=== PATIENT | male | born 1965 | race Caucasian/White ===

== ENCOUNTER 2017-06-09 00:12 | Inpatient (IN) | payer OTHER ==
[~2017-06-09] VITALS: Ht 177.8 cm; Wt 120.9 kg
[2017-06-09] VITALS (9 sets, daily range): BP systolic 104–165; BP diastolic 67–85; PULSE 84–110; RESP 16–20; TEMP 96.5–98.8; O2SAT 93–100
[2017-06-09] MEDS ORDERED: LISI10TA3 PO (00:37)
[2017-06-09] MEDS ORDERED: PAXI10TA8 PO (00:37)
[2017-06-09] MEDS ORDERED: TAMS5CAP PO (00:37)
[2017-06-09] MEDS ORDERED: ATOR20TA15 PO (00:37)
[2017-06-09] MEDS ORDERED: GENTAMICIN SULFATE 80 MG/2 ML VIAL IM ONE (00:45)
[2017-06-09] MEDS ORDERED: TETANUS/DIPHTHERIA TOXOID ADULT 0.5 ML VIAL IM ONE (00:45)
[2017-06-09] MEDS ORDERED: ceFAZolin 2 GM PREMIX 50 ML IV ONE (00:45)
[2017-06-09 00:56] LABS: AUTOMATED NEUTROPHIL # 5.5 TH/MM3 (1.8-7.7); BASOPHIL # 0.1 TH/MM3 (0-0.2); EOSINOPHIL # 0.4 TH/MM3 (0-0.4); EOSINOPHIL % 3.8 % (0.0-4.0); HEMATOCRIT 41.4 % (39.0-51.0); HEMO FLAGS DIFF FINAL; LYMPH % 29.9 % (9.0-44.0); LYMPHOCYTE # 2.9 TH/MM3 (1.0-4.8); MEAN CELL VOLUME 97.9 FL (80.0-100.0); MEAN CORPUSCULAR HEMOGLOBIN 33.9 PG (27.0-34.0); MEAN CORPUSCULAR HGB CONC 34.6 % (32.0-36.0); MONO % 8.2 % (0.0-8.0); NEUT % 57.1 % (16.0-70.0); PLATELET COUNT 167 TH/MM3 (150-450); RED BLOOD COUNT 4.23 MIL/MM3 (4.50-5.90); RED CELL DISTRIBUTION WIDTH 13.2 % (11.6-17.2); WHITE BLOOD COUNT 9.6 TH/MM3 (4.0-11.0)
[2017-06-09 01:03] LABS: APTT (PATIENT) 27.8 SEC (24.3-30.1); INTERNATIONAL NORMALIZED RATIO 1.1 RATIO; PROTHROMBIN TIME - PATIENT 12.4 SEC (9.8-11.6)
--- NOTE | 2017-06-09 01:05 | RADRPT ---
EXAM DATE/TIME: 06/09/2017 00:45 [facility] COMPARISON: No previous studies available for comparison. INDICATIONS : Pain post fall MEDICAL HISTORY : None. SURGICAL HISTORY : None. ENCOUNTER: Initial ACUITY: 1 day PAIN SCORE: 8/10 LOCATION: Right ankle FINDINGS: Limited AP and lateral views of the right ankle were obtained and demonstrate a mildly comminuted fra cture deformity through the distal fibula beginning approximately 7.5 cm above the level of the ankle mortise. There is mild distraction with no abnormal angulation. There is also a transverse fracture through the medial malleolus with widening of the medial ankle mortise. There is overlying soft tissu e swelling. The talus and calcaneus are intact. There is overlying artifact. CONCLUSION: 1. Transverse fracture through the medial malleolus with widening of the medial ankle mortise. 2. Mildly comminuted fracture deformity of the distal fibula. Jhony Wang MD on June 09, 2017 at 1:02 Board Certified Radiologist. This report was verified electronically.
[2017-06-09] MEDS: GENTAMICIN 80 MG PREMIX 100 ML IV ONE ×2 (01:09→02:30)
[2017-06-09 01:11] LABS: ANION GAP 13 MEQ/L (5-15); AST (GOT) 55 U/L (15-37); BICARBONATE 25.6 MEQ/L (21.0-32.0); BLOOD UREA NITROGEN 12 MG/DL (7-18); CHLORIDE 93 MEQ/L (98-107); GLOMERULAR FILTRATION RATE 76 ML/MIN (>89); POTASSIUM 3.5 MEQ/L (3.5-5.1); SODIUM (NA) 132 MEQ/L (136-145)
[2017-06-09 01:12] LABS: ALT (GPT) 68 U/L (12-78)
[2017-06-09 01:16] LABS: ALKALINE PHOSPHATASE 102 U/L (45-117); TOTAL BILIRUBIN ADULT 0.5 MG/DL (0.2-1.0)
[2017-06-09 01:19] LABS: ALCOHOL 285 MG/DL (0-5)
--- NOTE | 2017-06-09 01:40 | PD ---
HPI Chief Complaint: Injury Time Seen by Provider: 00:32 Travel History International Travel<30 days: No Contact w/Intl Traveler<30days: No Traveled to known affect area: No History of Present Illness HPI Patient is a 51-year-old male brought in by EMS with an open ankle fracture. He says he stepped off the curb and broke his ankle. He admits to drinking beer and [place] [employer]. He was given morphine by EMS prior to arrival. He provides no other information. [facility] Past Medical History Depression: Yes High Cholesterol: Yes Diminished Hearing: No Genitourinary: Yes (prostate issues) Hypertension: Yes Social History Alcohol Use: Yes (daily ) Tobacco Use: No Substance Use: Yes (marijuana) Allergies-Medications (Allergen,Severity, Reaction): Coded Allergies: No Known Allergies (Unverified , 06/09/17) Reported Meds & Prescriptions Reported Meds & Active Scripts Active Reported Atorvastatin (Atorvastatin Calcium) 20 Mg Tab 20 Mg PO HS Paxil (Paroxetine HCl) 10 Mg Tab 10 Mg PO DAILY Flomax (Tamsulosin HCl) 0.4 Mg Cap 0.4 Mg PO HS Lisinopril 10 Mg Tab 10 Mg PO DAILY Review of Systems ROS Limitations: Intoxication Physical Exam Narrative GENERAL: Awake and alert, alcohol on breath. SKIN: 4 inch laceration to the medial side of the right ankle. Bone is protruding through the skin. HEAD: Atraumatic. Normocephalic. No signs of trauma. EYES: Pupils equal and round. No scleral icterus. Extraocular movements intact. ENT: Mucous membranes pink and moist. NECK: Trachea midline. No JVD. No cervical spine tenderness. CARDIOVASCULAR: Regular rate and rhythm. No murmur appreciated. RESPIRATORY: No accessory muscle use. Clear to auscultation. Breath sounds equal bilaterally. GASTROINTESTINAL: Abdomen soft, non-tender, nondistended. MUSCULOSKELETAL: Right ankle dislocation, tibia is protruding through the skin. Pedal pulses intact. Sensation intact. NEUROLOGICAL: Awake and alert. No obvious cranial nerve deficits. Motor grossly within normal limits. Normal speech. PSYCHIATRIC: Intoxicated Data Data Last Documented VS Vital Signs Date Time Temp Pulse Resp B/P (MAP) Pulse Ox O2 Delivery O2 Flow Rate FiO2 06/09/17 00:41 84 16 104/67 (79) 99 Room Air 06/09/17 00:28 98.5 Orders Orders Iv Access Insert/Monitor (06/09/17 00:32) Complete Blood Count With Diff (06/09/17 00:32) Comprehensive Metabolic Panel (06/09/17 00:32) Act Partial Throm Time (Ptt) (06/09/17 00:32) Prothrombin Time / Inr (Pt) (06/09/17 00:32) Type And Screen (06/09/17 00:32) Alcohol (Ethanol) (06/09/17 00:32) Ankle, Limited (Ap&Lat) (06/09/17 ) Cta Runoff W Iv Contrast W 3d (06/09/17 ) Cefazolin 2 Gm Premix (Ancef 2 Gm Premix (06/09/17 00:45) Gentamicin Inj (Gentamicin Inj) (06/09/17 00:45) Tetanus/Diphtheria Tox Adult (Tetanus/Di (06/09/17 00:45) Gentamicin 80 Mg Premix (Gentamicin 80 M (06/09/17 00:45) Labs Laboratory Tests Test 06/09/17 00:30 White Blood Count 9.6 TH/MM3 Red Blood Count 4.23 MIL/MM3 Hemoglobin 14.3 GM/DL Hematocrit 41.4 % Mean Corpuscular Volume 97.9 FL Mean Corpuscular Hemoglobin 33.9 PG Mean Corpuscular Hemoglobin Concent 34.6 % Red Cell Distribution Width 13.2 % Platelet Count 167 TH/MM3 Mean Platelet Volume 8.1 FL Neutrophils (%) (Auto) 57.1 % Lymphocytes (%) (Auto) 29.9 % Monocytes (%) (Auto) 8.2 % Eosinophils (%) (Auto) 3.8 % Basophils (%) (Auto) 1.0 % Neutrophils # (Auto) 5.5 TH/MM3 Lymphocytes # (Auto) 2.9 TH/MM3 Monocytes # (Auto) 0.8 TH/MM3 Eosinophils # (Auto) 0.4 TH/MM3 Basophils # (Auto) 0.1 TH/MM3 CBC Comment DIFF FINAL Differential Comment Prothrombin Time 12.4 SEC Prothromb Time International Ratio 1.1 RATIO Activated Partial Thromboplast Time 27.8 SEC Blood Urea Nitrogen 12 MG/DL Creatinine 1.02 MG/DL Random Glucose 138 MG/DL Total Protein 7.0 GM/DL Albumin 3.5 GM/DL Calcium Level 8.2 MG/DL Alkaline Phosphatase 102 U/L Aspartate Amino Transf (AST/SGOT) 55 U/L Alanine Aminotransferase (ALT/SGPT) 68 U/L Total Bilirubin 0.5 MG/DL Sodium Level 132 MEQ/L Potassium Level 3.5 MEQ/L Chloride Level 93 MEQ/L Carbon Dioxide Level 25.6 MEQ/L Anion Gap 13 MEQ/L Estimat Glomerular Filtration Rate 76 ML/MIN Ethyl Alcohol Level 285 MG/DL MDM Medical Decision Making Medical Screen Exam Complete: Yes Emergency Medical Condition: Yes Differential Diagnosis Ankle fracture versus dislocation versus open fracture Narrative Course Patient is a 51-year-old male comes in after he stepped off the curb and dislocated his ankle. He comes in with the tibia protruding to the skin. Pulses intact. The ankle was immediately reduced and splinted. He was given Ancef and gentamicin. Given tetanus. Labs show an alcohol level of 285. Spoke with Dr. Arce of orthopedics, who will take the patient to the OR in the morning. Patient will be admitted to medicine. Diagnosis Primary Impression: Ankle fracture, right Qualified Codes: S82.891B - Other fracture of right lower leg, initial encounter for open fracture type I or II Additional Impression: Ankle dislocation Qualified Codes: S93.04XA - Dislocation of right ankle joint, initial encounter Admitting Information Admitting Physician Requests: Admit Jie De Leon MD Jun 09, 2017 01:40
[2017-06-09] MEDS ORDERED: SODIUM CHLOR 0.9% 1000 ML INJ 1,000 ML IV SCH (01:41)
[2017-06-09] MEDS ORDERED: ONDANSETRON HCL 4 MG/2 ML VIAL IVP PRN (01:45)
[2017-06-09] MEDS ORDERED: MORPHINE SULFATE 4 MG/ML INJ IV PUSH ONE (01:45)
[2017-06-09] MEDS ORDERED: SENNOSIDES 8.6 MG TAB PO PRN (01:45)
[2017-06-09] MEDS ORDERED: MAGNESIUM HYDROXIDE SUSP 30 ML CUP PO PRN (01:45)
[2017-06-09] MEDS ORDERED: SODIUM CHLORIDE 0.9% FLUSH 10 ML FLUSH IV FLUSH PRN ×2 (01:45→11:00)
[2017-06-09] MEDS ORDERED: LORazepam 2 MG/ML VIAL IV PUSH PRN ×4 (01:45)
[2017-06-09] MEDS ORDERED: LORazepam 1 MG TAB PO PRN (01:45)
[2017-06-09] MEDS ORDERED: LACTULOSE SYRUP 20 GM/30 ML CUP PO PRN (01:45)
[2017-06-09] MEDS ORDERED: FLUMAZENIL 0.5 MG/5 ML VIAL IV PUSH PRN (01:45)
[2017-06-09] MEDS ORDERED: BISACODYL 10 MG SUPP RECTAL PRN (01:45)
[2017-06-09] MEDS ORDERED: HALOPERIDOL LACTATE 5 MG/ML AMP IM PRN (01:45)
[2017-06-09] MEDS ORDERED: ACETAMINOPHEN 325 MG TAB PO PRN (01:45)
[2017-06-09] MEDS ORDERED: LORazepam 2 MG TAB PO PRN (01:45)
[2017-06-09] MEDS ORDERED: IOHEXOL 350 MG/ML 10 ML VIAL (for RAD DIAG) IVCONTRAST ONE (02:11)
[2017-06-09] MEDS ORDERED: THIAMINE INJ 100 MG in SODIUM CHLORIDE 0.9% INJ 100 ML IV ONE (02:30)
--- NOTE | 2017-06-09 02:38 | RADRPT ---
EXAM DATE/TIME: 06/09/2017 02:01 [facility] COMPARISON: No previous studies available for comparison. INDICATIONS : Left ankle fracture; evaluate for vascular injury. ETOH. IV CONTRAST: 97 cc Omnipaque 350 (iohexol) IV RADIATION DOSE: 10.52 CTDIvol (mGy) MEDICAL HISTORY : Hypertension. SURGICAL HISTORY : None. ENCOUNTER: Initial ACUITY: 1 day PAIN SCALE: 6/10 LOCATION: Left lower extremity TECHNIQUE: Volumetric scanning was performed using a multi-row detector CT scanner. The data was post processed with a variety of visualization algorithms including full volume maximum intensity projection, multi -planar sliding thin slab reformation, curved planar reformation, and surface rendering techniques. Using automated exposure control and adjustment of the mA and/or kV according to patient size, radiat ion dose was kept as low as reasonably achievable to obtain optimal diagnostic quality images. DICO M format image data is available electronically for review and comparison. FINDINGS: ABDOMINAL AORTA: The lumen is smooth without significant narrowing or aneurysmal dilation. The proximal celiac and garcia perior mesenteric arteries are patent and normal in diameter. There are solitary renal arteries bila terally without gross abnormality. BIFURCATION: Normal. RIGHT PELVIS: The right common iliac, internal iliac, and external iliac vessels are patent without luminal irregul arity. LEFT PELVIS: The left common iliac, internal iliac, and external iliac vessels are patent and without luminal irre gularity. RIGHT THIGH: The superficial femoral and profunda vessels are patent without luminal irregularity. LEFT THIGH: The superficial femoral and profunda vessels are patent without luminal irregularity. RIGHT KNEE: The distal femoral and popliteal arteries are patent without luminal irregularity. LEFT KNEE: The distal femoral and popliteal arteries are patent without luminal irregularity. RIGHT LEG: The trifurcation is intact. LEFT LEG: The trifurcation is intact. The oblique fracture through the distal fibula and lateral malleolar frac tures are visualized. There is no major vascular injury or extravasation. CONCLUSION: Normal three-vessel runoff below the knees with no major vascular injury or extravasation. Jhony Wang MD on June 09, 2017 at 2:33 Board Certified Radiologist. This report was verified electronically.
--- NOTE | 2017-06-09 02:54 | HHI.HP ---
[facility] Unknown Admission Diagnosis open fracture/dislocation Diagnoses: (1) Open right ankle fracture Diagnosis: Principal (2) Alcohol intoxication Diagnosis: Principal (3) Dehydration Diagnosis: Principal Travel History International Travel<30 Days: No Contact w/Intl Traveler <30 Da: No Traveled to Known Affected Are: No History of Present Illness This is a 51-year-old male with a PMH of HTN, Hyperlipidemia and Depression who was brought to the ER by EMS w/ right open ankle fx. Pt currently intoxicated. States he was stepping off a curb and broke his ankle. No other injuries reported. On arrival, BP 119/78, HR 95, O2 sat 97% on RA, Afebrile. CBC unremarkable. Most recently unremarkable except for GFR 76. INR 1.1. Alcohol 285. Ankle X-ray with transverse fracture at the medial malleolus with widening of the medial ankle mortise, mildly comminuted fracture of distal fibula. CTA w/ Run-off, normal three vessel runoff below the knees. S/p reduction in ER. Dr. Arce consulted, plan is for surgical intervention in am. Review of Systems Except as stated in HPI: all other systems reviewed are Neg ROS: 14 point review of systems otherwise negative. Past Family Social History Past Medical History PMH: HTN, Hyperlipidemia and Depression Past Surgical History PAST SURGICAL HISTORY: None Allergies: Coded Allergies: No Known Allergies (Unverified , 06/09/17) Family History PAST FAMILY HISTORY: Reviewed. No h/o DM or CAD Social History PAST SOCIAL HISTORY: Positive for alcohol and Marijuana. Negative for tobacco. Physical Exam Vital Signs Vital Signs Date Time Temp Pulse Resp B/P (MAP) Pulse Ox O2 Delivery O2 Flow Rate FiO2 06/09/17 00:41 84 16 104/67 (79) 99 Room Air 06/09/17 00:28 98.5 95 16 119/78 (92) 97 Physical Exam PE: GENERAL: Middle-aged male in no acute distress, +intoxicated. HEENT: PERRLA, EOMI. No scleral icterus or conjunctival pallor. No lid lag or facial droop. CARDIOVASCULAR: Regular rate and rhythm. No obvious murmurs to auscultation. No chest tenderness to palpation. RESPIRATORY: No obvious rhonchi or wheezing. Clear to auscultation. Breath sounds equal bilaterally. GASTROINTESTINAL: Abdomen soft, non-tender, nondistended. BS normal. MUSCULOSKELETAL: Extremities without clubbing, cyanosis, or edema. No obvious deformities. RLE s/p reduction w/ splint. NEUROLOGICAL: Awake, alert and oriented x4. No focal neurologic deficits. Moving both upper and lower extremities spontaneously. Laboratory Laboratory Tests Test 06/09/17 00:30 White Blood Count 9.6 Red Blood Count 4.23 Hemoglobin 14.3 Hematocrit 41.4 Mean Corpuscular Volume 97.9 Mean Corpuscular Hemoglobin 33.9 Mean Corpuscular Hemoglobin Concent 34.6 Red Cell Distribution Width 13.2 Platelet Count 167 Mean Platelet Volume 8.1 Neutrophils (%) (Auto) 57.1 Lymphocytes (%) (Auto) 29.9 Monocytes (%) (Auto) 8.2 Eosinophils (%) (Auto) 3.8 Basophils (%) (Auto) 1.0 Neutrophils # (Auto) 5.5 Lymphocytes # (Auto) 2.9 Monocytes # (Auto) 0.8 Eosinophils # (Auto) 0.4 Basophils # (Auto) 0.1 CBC Comment DIFF FINAL Differential Comment Prothrombin Time 12.4 Prothromb Time International Ratio 1.1 Activated Partial Thromboplast Time 27.8 Blood Urea Nitrogen 12 Creatinine 1.02 Random Glucose 138 Total Protein 7.0 Albumin 3.5 Calcium Level 8.2 Alkaline Phosphatase 102 Aspartate Amino Transf (AST/SGOT) 55 Alanine Aminotransferase (ALT/SGPT) 68 Total Bilirubin 0.5 Sodium Level 132 Potassium Level 3.5 Chloride Level 93 Carbon Dioxide Level 25.6 Anion Gap 13 Estimat Glomerular Filtration Rate 76 Ethyl Alcohol Level 285 Result Diagram: 06/09/172906/09/1729 Caprini VTE Risk Assessment Caprini VTE Risk Assessment: Mod/High Risk (score >= 2) Caprini Risk Assessment Model Point Value = 1 Point Value = 2 Point Value = 3 Point Value = 5 Age 41-60 Minor surgery BMI > 25 kg/m2 Swollen legs Varicose veins or History of unexplained or recurrent spontaneous Oral contraceptives or hormone replacement Sepsis (< 1 month) Serious lung disease, including pneumonia (< 1 month) Abnormal pulmonary function Acute myocardial infarction Congestive heart failure (< 1 month) History of inflammatory bowel disease Medical patient at bed rest Age 61-74 Arthroscopic surgery Major open surgery (> 45 min) Laparoscopic surgery (> 45 min) Malignancy Confined to bed (> 72 hours) Immobilizing plaster cast Central venous access Age >= 75 History of VTE Family history of VTE Factor V Leiden Prothrombin [id number] Lupus anticoagulant Anticardiolipin antibodies Elevated serum homocysteine Heparin-induced thrombocytopenia Other congenital or acquired thrombophilia Stroke (< 1 month) Elective arthroplasty Hip, pelvis, or leg fracture Acute spinal cord injury (< 1 month) Prophylaxis Regimen Total Risk Factor Score Risk Level Prophylaxis Regimen 0-1 Low Early ambulation 2 Moderate Order ONE of the following: *Sequential Compression Device (SCD) *Heparin 5000 units SQ BID 3-4 Higher Order ONE of the following medications: *Heparin 5000 units SQ TID *Enoxaparin/Lovenox 40 mg SQ daily (WT < 150 kg, CrCl > 30 mL/min) *Enoxaparin/Lovenox 30 mg SQ daily (WT < 150 kg, CrCl > 10-29 mL/min) *Enoxaparin/Lovenox 30 mg SQ BID (WT < 150 kg, CrCl > 30 mL/min) AND/OR *Sequential Compression Device (SCD) 5 or more Highest Order ONE of the following medications: *Heparin 5000 units SQ TID (Preferred with Epidurals) *Enoxaparin/Lovenox 40 mg SQ daily (WT < 150 kg, CrCl > 30 mL/min) *Enoxaparin/Lovenox 30 mg SQ daily (WT < 150 kg, CrCl > 10-29 mL/min) *Enoxaparin/Lovenox 30 mg SQ BID (WT < 150 kg, CrCl > 30 mL/min) AND *Sequential Compression Device (SCD) Assessment and Plan Problem List: (1) Open right ankle fracture ICD Code: S82.891B - Other fracture of right lower leg, initial encounter for open fracture type I or II (2) Alcohol intoxication ICD Code: F10.929 - Alcohol use, unspecified with intoxication, unspecified (3) Dehydration ICD Code: E86.0 - Dehydration Assessment and Plan A/P: 1. Open Ankle Fx: Right. S/p fall while intoxicated, no other injuries reported. Ankle X-ray w/ transverse fracture at the medial malleolus and widening of the medial ankle mortise with mildly comminuted fracture of distal fibula, images reviewed by me. CTA w/ run-off normal. S/p Reduction w/ splint in ER. Dr. Arce consulted, plan is for surgical intervention in am. NPO, IVF , analgesics/antiemetics as needed. 2. Alcohol Intoxication: Alcohol 285, admits to drinking beer/[employer]. Unclear if pt has h/o Alcohol Abuse or isolated intoxicated. Will start CIWA for possible withdrawal. MVT/Thiamine/Folate replacement, Seizure Precautions. 3. Dehydration: GFR 76, IVF for hydration, repeat labs in am. 4. DVT Prophylaxis: Anticoagulation post op per Ortho. 5. Social work for d/c planning as needed. 6. Case discussed w/ ER physician at length. Physician Certification 2 Midnight Certification Type: Admission for Inpatient Services Order for Inpatient Services The services are ordered in accordance with Medicare regulations or non- Medicare payer requirements, as applicable. In the case of services not specified as inpatient-only, they are appropriately provided as inpatient services in accordance with the 2-midnight benchmark. Estimated LOS (days): 2 days is the estimated time the patient will need to remain in the hospital, assuming treatment plan goals are met and no additional complications. Post-Hospital Plan: Not yet determined Shayy Lima MD Jun 09, 2017 02:54
[2017-06-09] MEDS ORDERED: LACTATED RINGER'S 1000 ML IV PRN (03:15)
[2017-06-09] MEDS ORDERED: METOPROLOL TARTRATE 25 MG TAB PO PRN (03:15)
[2017-06-09] MEDS ORDERED: SODIUM CHLORID 0.9% 500 ML IV PRN (03:15)
[2017-06-09] MEDS ORDERED: POVIDONE IODINE 5% (ANTISEPSIS KIT) 4 APPLICATIONS EACH NARE PRN (03:15)
[2017-06-09] MEDS ORDERED: CHLORHEXIDINE GLUCONATE 2 % 1 PACK (2 CLOTHS) TOPICAL PRN (03:15)
[2017-06-09] MEDS ORDERED: INSULIN HUMAN REGULAR 1,000 UNITS/10 ML VIAL SQ PRN (03:15)
[2017-06-09] MEDS: MORPHINE SULFATE 4 MG/ML INJ IV PUSH PRN ×5 (03:20→23:28)
--- NOTE | 2017-06-09 07:07 | PD.CONS ---
HPI Service [facility] Consult Requested By Primary Care Physician Unknown Admission Diagnosis open fracture/dislocation Diagnoses: (1) Open right ankle fracture Diagnosis: Principal (2) Alcohol intoxication Diagnosis: Secondary (3) Dehydration Diagnosis: Secondary Chief Complaint: Right ankle pain History of Present Illness Patient is a 51-year-old gentleman who presented to the ED earlier this morning highly intoxicated with right ankle injury after he states he stepped off a curb incorrectly. Patient was found to have an open right ankle fracture dislocation which was cleaned, closed reduced and splinted in the ED. Patient was started on antibiotics. This morning patient does appear much more sober. He denies any other injuries. Review of Systems Constitutional: DENIES: Fever Endocrine: DENIES: Polyuria Eyes: DENIES: Blurred vision Ears, nose, mouth, throat: DENIES: Throat pain Respiratory: DENIES: Cough Cardiovascular: DENIES: Chest pain Gastrointestinal: DENIES: Abdominal pain Genitourinary: DENIES: Urgency Musculoskeletal: COMPLAINS OF: Joint pain, Joint Swelling Integumentary: DENIES: Rash Hematologic/lymphatic: DENIES: Bruising Immunologic/allergic: DENIES: Eczema Neurologic: DENIES: Abnormal gait Psychiatric: DENIES: Anxiety Past Family Social History Past Medical History PMH: HTN, Hyperlipidemia and Depression Past Surgical History PAST SURGICAL HISTORY: None Reported Medications Medication for high blood pressure otherwise negative Allergies: Coded Allergies: No Known Allergies (Unverified , 06/09/17) Active Ordered Medications Current Medications Medications (Trade) Dose Ordered Sig/Coty Route Start Time Stop Time Status Last Admin (Folate) 1 mg DAILY PO 06/09/17 09:00 06/14/17 08:59 (Vitamin B1) 100 mg DAILY PO 06/10/17 09:00 (Theragran M Tab) 1 tab DAILY PO 06/09/17 09:00 06/14/17 08:59 (Romazicon Inj) 0.2 mg Q1M PRN IV PUSH 06/09/17 01:45 (Ativan) 1 mg Q4H PRN PO 06/09/17 01:45 (Ativan Inj) 1 mg Q4H PRN IV PUSH 06/09/17 01:45 (Ativan) 2 mg Q2H PRN PO 06/09/17 01:45 (Ativan Inj) 2 mg Q2H PRN IV PUSH 06/09/17 01:45 (Ativan Inj) 2 mg Q1H PRN IV PUSH 06/09/17 01:45 (Ativan Inj) 2 mg Q15M PRN IV PUSH 06/09/17 01:45 (Haldol Inj) 2 mg Q15M PRN IM 06/09/17 01:45 Sodium Chloride 1,000 ml @ 100 mls/hr Q10H IV 06/09/17 01:41 06/09/17 02:29 (NS Flush) 2 ml UNSCH PRN IV FLUSH 06/09/17 01:45 (NS Flush) 2 ml BID IV FLUSH 06/09/17 09:00 (Zofran Inj) 4 mg Q6H PRN IVP 06/09/17 01:45 (Tylenol) 650 mg Q6H PRN PO 06/09/17 01:45 (Morphine Inj) 2 mg Q3H PRN IV PUSH 06/09/17 01:45 06/09/17 03:20 (Roxicodone) 5 mg Q4H PRN PO 06/09/17 01:45 (Ann-Colace) 1 tab BID PO 06/09/17 09:00 (Milk Of Magnesia Liq) 30 ml Q12H PRN PO 06/09/17 01:45 (Senokot) 17.2 mg Q12H PRN PO 06/09/17 01:45 (Dulcolax Supp) 10 mg DAILY PRN RECTAL 06/09/17 01:45 (Lactulose Liq) 30 ml DAILY PRN PO 06/09/17 01:45 Lactated Ringer's 1,000 ml @ 30 mls/hr Q24H PRN IV 06/09/17 03:15 06/12/17 03:14 06/09/17 06:37 Sodium Chloride 500 ml @ 30 mls/hr [id number] PRN IV 06/09/17 03:15 06/12/17 03:14 (Lopressor) 25 mg [employer] PRN PO 06/09/17 03:15 06/12/17 03:14 (Betadine 5% Antisepsis Kit) 1 applic [employer]IN[employer] PRN EACH NARE 06/09/17 03:15 06/12/17 03:14 (Chlorhexidine 2% Cloth) 3 pack [employer]IN[employer] PRN TOPICAL 06/09/17 03:15 06/12/17 03:14 (NovoLIN R INJ) See Protocol Table ... [employer] S[employer]OL COORDINATOR PRN SQ 06/09/17 03:15 06/12/17 03:14 Reported Meds & Active Scripts Active Reported Atorvastatin (Atorvastatin Calcium) 20 Mg Tab 20 Mg PO HS Paxil (Paroxetine HCl) 10 Mg Tab 10 Mg PO DAILY Flomax (Tamsulosin HCl) 0.4 Mg Cap 0.4 Mg PO HS Lisinopril 10 Mg Tab 10 Mg PO DAILY Family History PAST FAMILY HISTORY: Reviewed. No h/o DM or CAD Social History PAST SOCIAL HISTORY: Positive for alcohol and Marijuana. Negative for tobacco. Physical Exam Vital Signs Vital Signs Date Time Temp Pulse Resp B/P (MAP) Pulse Ox O2 Delivery O2 Flow Rate FiO2 06/09/17 03:05 96.5 95 20 124/67 (86) 94 06/09/17 00:41 84 16 104/67 (79) 99 Room Air 06/09/17 00:28 98.5 95 16 119/78 (92) 97 Physical Exam Awake, alert, no acute distress Normocephalic No JVD Pupils equal Moist mucous membranes Nonlabored respirations Soft nontender abdomen Regular rate Right lower extremity: Splint in place without any significant drainage. Patient does move toes and has positive EHL and FHL. Sensation intact over distal toes. Brisk cap refill. No significant discomfort with knee or hip range of motion. Bilateral upper and left lower extremity: No significant deformities or tenderness palpation. Full active range of motion and strength throughout. Sensation intact. Radial and dorsalis pedis pulses are palpable. Skin: No rash Normal affect Laboratory Laboratory Tests Test 06/09/17 00:30 White Blood Count 9.6 Red Blood Count 4.23 Hemoglobin 14.3 Hematocrit 41.4 Mean Corpuscular Volume 97.9 Mean Corpuscular Hemoglobin 33.9 Mean Corpuscular Hemoglobin Concent 34.6 Red Cell Distribution Width 13.2 Platelet Count 167 Mean Platelet Volume 8.1 Neutrophils (%) (Auto) 57.1 Lymphocytes (%) (Auto) 29.9 Monocytes (%) (Auto) 8.2 Eosinophils (%) (Auto) 3.8 Basophils (%) (Auto) 1.0 Neutrophils # (Auto) 5.5 Lymphocytes # (Auto) 2.9 Monocytes # (Auto) 0.8 Eosinophils # (Auto) 0.4 Basophils # (Auto) 0.1 CBC Comment DIFF FINAL Differential Comment Prothrombin Time 12.4 Prothromb Time International Ratio 1.1 Activated Partial Thromboplast Time 27.8 Blood Urea Nitrogen 12 Creatinine 1.02 Random Glucose 138 Total Protein 7.0 Albumin 3.5 Calcium Level 8.2 Alkaline Phosphatase 102 Aspartate Amino Transf (AST/SGOT) 55 Alanine Aminotransferase (ALT/SGPT) 68 Total Bilirubin 0.5 Sodium Level 132 Potassium Level 3.5 Chloride Level 93 Carbon Dioxide Level 25.6 Anion Gap 13 Estimat Glomerular Filtration Rate 76 Ethyl Alcohol Level 285 Result Diagram: 06/09/172906/09/1729 Imaging Right ankle radiographs demonstrate a bimalleolar ankle fracture which appears unstable on imaging. This has been reduced from prior ED reports. Assessment & Plan Assessment and Plan Patient is a 51-year-old gentleman with open right bimalleolar ankle fracture Options of management were discussed with the patient including nonoperative versus operative management. Given the open nature of his injury, I have recommended operative management in the form of irrigation and debridement with open reduction internal fixation of his right ankle fracture. I did discuss that should his swelling or his open injury be too significant to acutely managed with open reduction internal fixation, I would perform an irrigation and debridement and possible application of external fixator. I also discussed the option of the use of an external fixator should his ankle be highly unstable evening after it has been fixed. Risks, benefits, alternatives were discussed with the patient. Risks including but not limited to risk of infection, anesthesia, neurovascular injury, malunion or nonunion, hardware malposition or failure, painful retained hardware, ankle arthritis and chronic pain, and other unforeseen complications. At this time patient has consented to the procedure. Patient is nothing by mouth for surgery this morning. Patient will be continued on antibiotics for 48 hours postop. Patient will be nonweightbearing postop in a splint. Liza Arce MD Jun 09, 2017 07:07
[2017-06-09] MEDS ORDERED: GENTAMICIN SULFATE 80 MG/2 ML VIAL ONE ×2 (08:15→08:16)
[2017-06-09] MEDS ORDERED: ceFAZolin INJ 1,000 MG VIAL ONE (08:15)
[2017-06-09] MEDS: DOCUSATE SODIUM 50 MG/SENNA 8.6 MG TAB PO SCH ×2 (09:00→20:16)
[2017-06-09] MEDS: MULTIVITAMINS/MINERALS THERAPEUTIC TAB PO SCH (09:00)
[2017-06-09] MEDS: SODIUM CHLORIDE 0.9% FLUSH 10 ML FLUSH IV FLUSH SCH ×2 (09:00→20:17)
[2017-06-09] MEDS: FOLIC ACID 1 MG TAB PO SCH (09:00)
--- NOTE | 2017-06-09 10:55 | PD.OP ---
cc: Liza Arce MD Operative Report Preoperative Diagnosis: (1) Open right ankle fracture Postoperative Diagnosis: Same Procedure: 1. Irrigation and debridement open right ankle fracture dislocation, skin, subcutaneous tissue, muscle and fascia and bone 2. Open reduction internal fixation right bimalleolar ankle fracture and dislocation 3. Open reduction internal fixation right syndesmotic injury Surgeon: Liza Arce Loft Worker(s): food service assistant, daily Operation and Findings: Indications for procedure: Patient is a 51-year-old gentleman who presented highly intoxicated with reported slip off of a curb with a large open wound over his medial right ankle with ankle pain and inability to ambulate. Patient was found to have an open unstable bimalleolar ankle fracture. Risks, benefits , alternatives were discussed with the patient risks of surgery including but not limited to infection, malunion or nonunion, hardware malposition or failure , possible need for further surgery, damage to neurovascular structures, chronic ankle pain or arthritis, and possible other unforeseen consultations were all discussed with the patient. He did consent to proceed with the above- mentioned procedure. Description of procedure: Patient was brought back to the operating room and placed supine on operating room table with all bony prominences well-padded. Gen. anesthesia then ensued. Preoperative antibiotics were given in the form of Ancef and gentamicin. Patient's right leg was prepped and draped in standard sterile fashion. A timeout was performed to identify the correct patient, side, site and procedure to be performed. Attention was first turned to the medial wound which is probably 6-8 cm in length in a horizontal fashion along the medial aspect of the joint and medial malleolus. The ankle was highly unstable and continued to dislocate. This wound was debrided with sharp debridement and irrigated thoroughly with over 3 L of normal saline laden with gentamicin. The joint along with the bone, subcutaneous tissue, muscle and fascia were all clearly debrided to healthy bleeding tissue. There is no gross contamination noted. At this time, the tourniquet was then inflated to 250 mmHg. A lateral incision was made over the distal fibula with dissection down through the subcutaneous tissue with careful attention to preserve the superficial peroneal nerve. The distal third fibula fracture was highly comminuted. There was 1 large fragment that was lagged to the distal piece to allow for fewer fragments. A large 12 hole one third tubular Synthes plate was placed over the lateral aspect of the fibula and attached distally and acceptable position on fluoroscopy and distal screws were placed. With gentle traction and with the help of clamps, the fibula was brought out to length under AP and lateral fluoroscopy. This was then clamped into position and proximal screws were then placed. AP and lateral projections demonstrated an acceptable fibular length and fracture alignment along with hardware positioning. At this point the medial malleolus was then reduced under direct visualization and confirmed on fluoroscopy. K wires were then placed from a distal to proximal direction to allow for 2 medial malleolar screws to be placed. These were verified to be out of the joint with fracture reduced under fluoroscopy. The K wires were then measured, the near cortex drilled and 2 4-0 Synthes cannulated screws were then placed and tightened down. The medial malleolus fracture again was found to be in good position and hardware out of the joint and stable. On AP fluoroscopy the ankle was then stressed with external rotation and the syndesmosis significantly widened and the ankle started to dislocate. At this point it was decided a syndesmotic screw would be placed through the lateral fibular plate with the use of fluoroscopy. The syndesmosis was held reduced with the ankle in maximum dorsiflexion. The tibiotalar joint was well reduced on both AP and lateral projections and the syndesmotic screw was drilled, measured and then placed. At this point, the ankle was then externally stressed again, and still appeared to slightly shift in the tibiotalar joint. With this, it was decided a second syndesmotic screw would be placed in the same manner as the first in maximum dorsiflexion. Once the second syndesmotic screw was placed and tightened down, the ankle was again stressed with external rotation and found to be stable. Final XR were then obtained and verified to be in good alignment, stable reduction and acceptable position of hardware. The wounds were thoroughly irrigated. The tourniquet was released and hemostasis achieved. The subcutaneous tissue was then closed with interrupted Vicryl-Plus sutures. Skin was then closed with nylon sutures and sterile dressings placed. A splint was placed and patient awoken from general anesthesia without complication. Disposition: NWB RLE in splint for likely a total of 6 weeks. Elevate on pillows. Continue gentamicin and ancef for 48hrs postop. Liza Arce MD Jun 09, 2017 10:55
[2017-06-09] MEDS: LACTATED RINGER'S 1000 ML INJ 1,000 ML IV SCH (10:56)
[2017-06-09] MEDS ORDERED: DO NOT ADM ANY ANTICOAGULANT DRUGS PRN (10:58)
[2017-06-09] MEDS ORDERED: Gentamicin Consult Pharmacy 1 EA OTHER SCH (11:00)
[2017-06-09] MEDS ORDERED: Post-op Orders (for Pharmacy) MISC XX ONE (11:00)
[2017-06-09] MEDS ORDERED: ACETAMINOPHEN 1000 MG/100 ML 100 ML IV ONE (11:11)
--- NOTE | 2017-06-09 11:11 | RADRPT ---
EXAM DATE/TIME: 06/09/2017 08:47 [facility] COMPARISON: No previous studies available for comparison. INDICATIONS : Right ankle ORIF. MEDICAL HISTORY : None. SURGICAL HISTORY : None. ENCOUNTER: Initial ACUITY: 1 day PAIN SCORE: Non-responsive. LOCATION: Right ankle. FINDINGS: 4 views are recorded digitally in the operating room during placement of lateral fibular plate, media l tibial screws, and transosseous screws. CONCLUSION: Intraoperative images. Pepe Dey MD on June 09, 2017 at 11:09 Board Certified Radiologist. This report was verified electronically.
[2017-06-09] MEDS ORDERED: ONDANSETRON HCL 4 MG/2 ML VIAL IV ONE (12:00)
[2017-06-09] MEDS ORDERED: GLYCOPYRROLATE 1 MG/5 ML SYRINGE IV PUSH ONE (12:00)
[2017-06-09] MEDS ORDERED: MIDAZOLAM HCL 2 MG/2 ML VIAL IV ONE (12:00)
[2017-06-09] MEDS ORDERED: SUCCINYLCHOLINE CHLORIDE 100 MG/5 ML SYRINGE IV PUSH ONE (12:00)
[2017-06-09] MEDS ORDERED: ePHEDrine/NS 25 MG/5 ML SYR IV ONE (12:00)
[2017-06-09] MEDS ORDERED: LACTATED RINGER'S 1000 ML INJ 1,000 ML IV ONE (12:00)
[2017-06-09] MEDS ORDERED: DEXAMETHASONE SOD PHOS 4 MG/ML VIAL IV ONE (12:00)
[2017-06-09] MEDS ORDERED: LIDOCAINE HCL 1% PF 5 ML SYRINGE OTHER ONE (12:00)
[2017-06-09] MEDS ORDERED: ROCURONIUM INJ 50 MG/5 ML SYRINGE IV PUSH ONE (12:00)
[2017-06-09] MEDS ORDERED: PROPOFOL 200 MG/20 ML AMP IV ONE (12:00)
[2017-06-09] MEDS ORDERED: NEOSTIGMINE 3 MG/3 ML SYR IV ONE (12:00)
--- NOTE | 2017-06-09 16:10 | HHI.PR ---
Subjective Remarks History from admitting physician Doctor Cathy Lima This is a 51-year-old male with a PMH of HTN, Hyperlipidemia and Depression who was brought to the ER by EMS w/ right open ankle fx. Pt currently intoxicated. States he was stepping off a curb and broke his ankle. No other injuries reported. On arrival, BP 119/78, HR 95, O2 sat 97% on RA, Afebrile. CBC unremarkable. Most recently unremarkable except for GFR 76. INR 1.1. Alcohol 285. Ankle X-ray with transverse fracture at the medial malleolus with widening of the medial ankle mortise, mildly comminuted fracture of distal fibula. CTA w/ Run-off, normal three vessel runoff below the knees. S/p reduction in ER. Dr. Arce consulted, plan is for surgical intervention in am. This is a pleasant 51 y/o male was seen in his bedroom in the presence of Nurse , he is looking for something he lost and helped by Nurse not able to talk to me too much but states he is fine after procedure, he had Irrigation and debridement open right ankle fracture dislocation, skin, subcutaneous tissue, muscle and fascia and bone, Open reduction internal fixation right bimalleolar ankle fracture and dislocation Open reduction internal fixation right syndesmotic injury. Orthopedic employment specialist/program manager Doctor Liza Arce He was admitted today please read full H and P dictated by admitting physician. as we know he has Hypertension, Hyperlipidemia, Depression alcohol abuse and marijuana. has Obesity. Objective Vital Signs Date Time Temp Pulse Resp B/P (MAP) Pulse Ox O2 Delivery O2 Flow Rate FiO2 06/09/17 11:45 98.8 110 16 144/75 (98) 94 06/09/17 11:40 98.7 108 15 145/69 (94) 96 Nasal Cannula 3 06/09/17 11:30 143/70 (94) Nasal Cannula 3 06/09/17 11:15 108 14 145/70 (95) 94 Nasal Cannula 3 06/09/17 11:04 99.0 112 15 153/79 (103) 96 Nasal Cannula 3 06/09/17 06:50 97.0 98 20 117/73 (88) 100 06/09/17 03:05 96.5 95 20 124/67 (86) 94 06/09/17 03:05 96.5 95 20 124/67 (86) 94 06/09/17 00:41 84 16 104/67 (79) 99 Room Air 06/09/17 00:28 98.5 95 16 119/78 (92) 97 I/O 06/08/17 06/08/17 06/08/17 06/09/17 06/09/17 06/09/17 07:00 15:00 23:00 07:00 15:00 23:00 Intake Total 698 ml 1520 ml Output Total 1450 ml 200 ml Balance -752 ml 1320 ml Intake IV Total 698 ml 20 ml Other 1500 ml Output Urine Total 1450 ml 0 ml Estimated Blood Loss 200 ml # Voids 1 Result Diagram: 06/09/17 0030 06/09/17 0030 Imaging Last Impressions Aorta w/Runoff CTA 06/09/17 0000 Signed Impressions: Service Date/Time: Friday, June 09, 2017 02:01 - CONCLUSION: Normal three-vessel runoff below the knees with no major vascular injury or extravasation. Jhony Wang MD Ankle X-Ray 06/09/17 0000 Signed Impressions: Service Date/Time: Friday, June 09, 2017 08:47 - CONCLUSION: Intraoperative images. Pepe Dey MD Procedures Irrigation and debridement open right ankle fracture dislocation, skin, subcutaneous tissue, muscle and fascia and bone, Open reduction internal fixation right bimalleolar ankle fracture and dislocation Open reduction internal fixation right syndesmotic injury. Orthopedic employment specialist/program manager Doctor Liza Arce Other Results Laboratory Tests Test 06/09/17 00:30 White Blood Count 9.6 TH/MM3 Red Blood Count 4.23 MIL/MM3 Hemoglobin 14.3 GM/DL Hematocrit 41.4 % Mean Corpuscular Volume 97.9 FL Mean Corpuscular Hemoglobin 33.9 PG Mean Corpuscular Hemoglobin Concent 34.6 % Red Cell Distribution Width 13.2 % Platelet Count 167 TH/MM3 Mean Platelet Volume 8.1 FL Neutrophils (%) (Auto) 57.1 % Lymphocytes (%) (Auto) 29.9 % Monocytes (%) (Auto) 8.2 % Eosinophils (%) (Auto) 3.8 % Basophils (%) (Auto) 1.0 % Neutrophils # (Auto) 5.5 TH/MM3 Lymphocytes # (Auto) 2.9 TH/MM3 Monocytes # (Auto) 0.8 TH/MM3 Eosinophils # (Auto) 0.4 TH/MM3 Basophils # (Auto) 0.1 TH/MM3 CBC Comment DIFF FINAL Differential Comment Prothrombin Time 12.4 SEC Prothromb Time International Ratio 1.1 RATIO Activated Partial Thromboplast Time 27.8 SEC Blood Urea Nitrogen 12 MG/DL Creatinine 1.02 MG/DL Random Glucose 138 MG/DL Total Protein 7.0 GM/DL Albumin 3.5 GM/DL Calcium Level 8.2 MG/DL Alkaline Phosphatase 102 U/L Aspartate Amino Transf (AST/SGOT) 55 U/L Alanine Aminotransferase (ALT/SGPT) 68 U/L Total Bilirubin 0.5 MG/DL Sodium Level 132 MEQ/L Potassium Level 3.5 MEQ/L Chloride Level 93 MEQ/L Carbon Dioxide Level 25.6 MEQ/L Anion Gap 13 MEQ/L Estimat Glomerular Filtration Rate 76 ML/MIN Ethyl Alcohol Level 285 MG/DL Objective Remarks GENERAL: No acute distress, Obesity. CARDIOVASCULAR: Regular rate and rhythm. RESPIRATORY: clear to auscultation. MUSCULOSKELETAL: RLE orthotics in place. NEUROLOGICAL: Awake, alert and oriented x4. Medications and IVs Current Medications Medications (Trade) Dose Ordered Sig/Coty Route Start Time Stop Time Status Last Admin (Folate) 1 mg DAILY PO 06/09/17 09:00 06/14/17 08:59 (Vitamin B1) 100 mg DAILY PO 06/10/17 09:00 (Theragran M Tab) 1 tab DAILY PO 06/09/17 09:00 06/14/17 08:59 (Romazicon Inj) 0.2 mg Q1M PRN IV PUSH 06/09/17 01:45 (Ativan) 1 mg Q4H PRN PO 06/09/17 01:45 (Ativan Inj) 1 mg Q4H PRN IV PUSH 06/09/17 01:45 (Ativan) 2 mg Q2H PRN PO 06/09/17 01:45 (Ativan Inj) 2 mg Q2H PRN IV PUSH 06/09/17 01:45 (Ativan Inj) 2 mg Q1H PRN IV PUSH 06/09/17 01:45 (Ativan Inj) 2 mg Q15M PRN IV PUSH 06/09/17 01:45 (Haldol Inj) 2 mg Q15M PRN IM 06/09/17 01:45 (NS Flush) 2 ml UNSCH PRN IV FLUSH 06/09/17 01:45 (NS Flush) 2 ml BID IV FLUSH 06/09/17 09:00 (Zofran Inj) 4 mg Q6H PRN IVP 06/09/17 01:45 (Tylenol) 650 mg Q6H PRN PO 06/09/17 01:45 (Morphine Inj) 2 mg Q3H PRN IV PUSH 06/09/17 01:45 06/09/17 15:14 (Roxicodone) 5 mg Q4H PRN PO 06/09/17 01:45 06/09/17 13:25 (Ann-Colace) 1 tab BID PO 06/09/17 09:00 (Milk Of Magnesia Liq) 30 ml Q12H PRN PO 06/09/17 01:45 (Senokot) 17.2 mg Q12H PRN PO 06/09/17 01:45 (Dulcolax Supp) 10 mg DAILY PRN RECTAL 06/09/17 01:45 (Lactulose Liq) 30 ml DAILY PRN PO 06/09/17 01:45 (Lopressor) 25 mg [employer]EMARK A[employer]IXER PRN PO 06/09/17 03:15 06/12/17 03:14 (Betadine 5% Antisepsis Kit) 1 applic [employer]ARK A[employer]IXER PRN EACH NARE 06/09/17 03:15 06/12/17 03:14 (Chlorhexidine 2% Cloth) 3 pack [employer] PRN TOPICAL 06/09/17 03:15 06/12/17 03:14 (NovoLIN R INJ) See Protocol Table ... TRADEMARK A[employer]IXER PRN SQ 06/09/17 03:15 06/12/17 03:14 Lactated Ringer's 1,000 ml @ 80 mls/hr [id number] IV 06/09/17 10:56 (Lovenox Inj) 40 mg Q24H SQ 06/09/17 23:00 Pharmacy Profile Note 0 ml @ 0 mls/hr UNSCH OTHER 06/09/17 11:00 06/11/17 10:59 Miscellaneous Information ALL NURSING DEPARTME... UNSCH PRN .XX 06/09/17 10:58 06/10/17 10:57 Miscellaneous Information SPECIFIC LAB TO BE DRAWN:GENTAMI... ONCE ONCE .XX 06/10/17 21:45 06/10/17 21:46 Gentamicin Sulfate/Sodium Chloride 100 ml @ 200 mls/hr Q8H IV 06/09/17 22:00 Cefazolin Sodium 1000 mg/Sodium Chloride 100 ml @ 200 mls/hr Q6H IV 06/09/17 15:00 06/10/17 03:29 06/09/17 15:15 A/P Assessment and Plan 1. Open Ankle Fx: Right. S/p fall while intoxicated, Ankle X-ray w/ transverse fracture at the medial malleolus and widening of the medial ankle mortise with mildly comminuted fracture of distal fibula, images reviewed by me. CTA w/ run- off normal. S/p Reduction w/ splint in ER. Status post Irrigation and debridement open right ankle fracture dislocation, skin, subcutaneous tissue, muscle and fascia and bone, Open reduction internal fixation right bimalleolar ankle fracture and dislocation Open reduction internal fixation right syndesmotic injury. Orthopedic employment specialist/program manager Doctor Liza Arce 2. Alcohol Intoxication: Alcohol 285, admits to drinking beer/[employer]. Unclear if pt has h/o Alcohol Abuse or isolated intoxicated. Will start CIWA for possible withdrawal. MVT/Thiamine/Folate replacement, Seizure Precautions. 3. Hypertension by history 4. Obesity strongly recommended diet and exercise as outpatient 5. Alcohol abuse/marijuana abuse strongly recommended to stop behavior. DVT prophylaxis as per Attending physician. Sha Murillo MD Jun 09, 2017 16:10
[2017-06-09] MEDS ORDERED: SODIUM CHLORIDE 0.9% FLUSH 10 ML FLUSH IV FLUSH SCH (21:00)
[2017-06-09] MEDS: GENTAMICIN/SOD CHL 80 MG/100 ML IV SCH (21:53)
--- NOTE | 2017-06-09 22:58 | EKG ---
Date Performed: 06/09/2017 Time Performed: 04:53:10 PTAGE: 51 years EKG: Sinus rhythm Normal ECG NO PREVIOUS TRACING DOCTOR: Zhou Murphy Interpretating Date/Time 06/09/2017 22:57:40
[2017-06-09] MEDS: ENOXAPARIN SODIUM 40 MG/0.4 ML SYRINGE SQ SCH (23:20)
[2017-06-10] MEDS: LACTATED RINGER'S 1000 ML INJ 1,000 ML IV SCH ×3 (02:07→23:30)
[2017-06-10 03:32] VITALS: BP 129/71; PULSE 85; RESP 18; TEMP 97.6; O2SAT 93
[2017-06-10] MEDS: GENTAMICIN/SOD CHL 80 MG/100 ML IV SCH ×3 (06:06→21:49)
--- NOTE | 2017-06-10 07:00 | PD.ORT.PN ---
Subjective Subjective Remarks Patient doing well this morning. Pain relatively well controlled. Denies nausea or vomiting. Denies fevers or chills. No chest pain or shortness of breath Objective Vitals Vital Signs Date Time Temp Pulse Resp B/P (MAP) Pulse Ox O2 Delivery O2 Flow Rate FiO2 06/10/17 03:32 97.6 85 18 129/71 (90) 93 06/09/17 23:40 98.4 95 18 126/70 (88) 93 06/09/17 20:09 94 06/09/17 19:35 98.6 100 19 165/85 (111) 94 06/09/17 16:00 97.1 99 18 154/85 (108) 96 06/09/17 11:45 98.8 110 16 144/75 (98) 94 06/09/17 11:40 98.7 108 15 145/69 (94) 96 Nasal Cannula 3 06/09/17 11:30 143/70 (94) Nasal Cannula 3 06/09/17 11:15 108 14 145/70 (95) 94 Nasal Cannula 3 06/09/17 11:04 99.0 112 15 153/79 (103) 96 Nasal Cannula 3 I/O 06/09/17 06/09/17 06/09/17 06/10/17 06/10/17 06/10/17 07:00 15:00 23:00 07:00 15:00 23:00 Intake Total 698 ml 2000 ml 1680 ml 720 ml Output Total 1450 ml 200 ml 975 ml 3140 ml Balance -752 ml 1800 ml 705 ml -2420 ml Intake Oral 480 ml 480 ml 720 ml IV Total 698 ml 20 ml 1200 ml Other 1500 ml Output Urine Total 1450 ml 0 ml 975 ml 3140 ml Estimated Blood Loss 200 ml # Voids 1 2 # Bowel Movements 0 0 0 Result Diagram: 06/09/172906/09/1729 Objective Remarks Awake, alert, no acute distress Right lower extremity: Splint in place without any significant drainage. Patient does move toes positive EHL and FHL. Sensation intact over distal toes. Brisk cap refill Assessment & Plan Assessment and Plan 51-year-old, now postop day 1 status post I&D and ORIF of right open ankle fracture 1. Nonweightbearing right lower extremity in splint. Splint remained in place. 2. PT for mobilization 3. Lovenox while in house for DVT prophylaxis 4. Continue antibiotics for 48 hours postop for grade 2 open fracture 5. We'll plan for likely discharge tomorrow. Liza Arce MD Jun 10, 2017 07:00
[2017-06-10] MEDS ORDERED: OXYC-392 PO (07:01)
[2017-06-10] MEDS ORDERED: WALKER WHEELS/F1 MIS (07:02)
[2017-06-10 07:09] LABS: BASOPHIL % 0.2 % (0.0-2.0); HEMATOCRIT 37.4 % (39.0-51.0); HEMO FLAGS DIFF FINAL; LYMPH % 13.5 % (9.0-44.0); LYMPHOCYTE # 1.6 TH/MM3 (1.0-4.8); MEAN CORPUSCULAR HEMOGLOBIN 34.2 PG (27.0-34.0); MEAN CORPUSCULAR HGB CONC 34.9 % (32.0-36.0); MONO % 10.2 % (0.0-8.0); NEUT % 76.1 % (16.0-70.0); PLATELET COUNT 142 TH/MM3 (150-450); RED BLOOD COUNT 3.82 MIL/MM3 (4.50-5.90); RED CELL DISTRIBUTION WIDTH 13.2 % (11.6-17.2); WHITE BLOOD COUNT 11.8 TH/MM3 (4.0-11.0)
[2017-06-10 07:30] LABS: ANION GAP 7 MEQ/L (5-15); AST (GOT) 38 U/L (15-37); BICARBONATE 28.9 MEQ/L (21.0-32.0); BLOOD UREA NITROGEN 12 MG/DL (7-18); CHLORIDE 98 MEQ/L (98-107); GLOMERULAR FILTRATION RATE 88 ML/MIN (>89); POTASSIUM 4.2 MEQ/L (3.5-5.1); SODIUM (NA) 134 MEQ/L (136-145)
[2017-06-10 07:33] LABS: ALKALINE PHOSPHATASE 92 U/L (45-117); ALT (GPT) 50 U/L (12-78); TOTAL BILIRUBIN ADULT 0.8 MG/DL (0.2-1.0)
[2017-06-10 08:00] VITALS: BP 121/79; PULSE 79; RESP 18; TEMP 97.5; O2SAT 93
[2017-06-10] MEDS: MULTIVITAMINS/MINERALS THERAPEUTIC TAB PO SCH (08:23)
[2017-06-10] MEDS: DOCUSATE SODIUM 50 MG/SENNA 8.6 MG TAB PO SCH ×2 (08:23→19:45)
[2017-06-10] MEDS: FOLIC ACID 1 MG TAB PO SCH (08:23)
[2017-06-10] MEDS: THIAMINE HCL 100 MG TAB PO SCH (08:23)
[2017-06-10] MEDS: SODIUM CHLORIDE 0.9% FLUSH 10 ML FLUSH IV FLUSH SCH ×2 (08:24→19:48)
--- NOTE | 2017-06-10 08:36 | HHI.PR ---
Subjective Remarks History from admitting physician Doctor Cathy Lima This is a 51-year-old male with a PMH of HTN, Hyperlipidemia and Depression who was brought to the ER by EMS w/ right open ankle fx. Pt currently intoxicated. States he was stepping off a curb and broke his ankle. No other injuries reported. On arrival, BP 119/78, HR 95, O2 sat 97% on RA, Afebrile. CBC unremarkable. Most recently unremarkable except for GFR 76. INR 1.1. Alcohol 285. Ankle X-ray with transverse fracture at the medial malleolus with widening of the medial ankle mortise, mildly comminuted fracture of distal fibula. CTA w/ Run-off, normal three vessel runoff below the knees. S/p reduction in ER. Dr. Arce consulted, plan is for surgical intervention in am. 06/09: This is a pleasant 51 y/o male was seen in his bedroom in the presence of Nurse, he is looking for something he lost and helped by Nurse not able to talk to me too much but states he is fine after procedure, he had Irrigation and debridement open right ankle fracture dislocation, skin, subcutaneous tissue, muscle and fascia and bone, Open reduction internal fixation right bimalleolar ankle fracture and dislocation Open reduction internal fixation right syndesmotic injury. Orthopedic central melt specialist Doctor Liza Arce He was admitted today please read full H and P dictated by admitting physician. as we know he has Hypertension, Hyperlipidemia, Depression alcohol abuse and marijuana. has Obesity. 06/10: Seen in his bedroom no complaint, evaluated laboratory for today, stable labs, no nausea, vomit or diarrhea, for probable discharge tomorrow once cleared by Orthopedic Surgery Objective Vital Signs Date Time Temp Pulse Resp B/P (MAP) Pulse Ox O2 Delivery O2 Flow Rate FiO2 06/10/17 03:32 97.6 85 18 129/71 (90) 93 06/09/17 23:40 98.4 95 18 126/70 (88) 93 06/09/17 20:09 94 06/09/17 19:35 98.6 100 19 165/85 (111) 94 06/09/17 16:00 97.1 99 18 154/85 (108) 96 06/09/17 11:45 98.8 110 16 144/75 (98) 94 06/09/17 11:40 98.7 108 15 145/69 (94) 96 Nasal Cannula 3 06/09/17 11:30 143/70 (94) Nasal Cannula 3 06/09/17 11:15 108 14 145/70 (95) 94 Nasal Cannula 3 06/09/17 11:04 99.0 112 15 153/79 (103) 96 Nasal Cannula 3 I/O 06/09/17 06/09/17 06/09/17 06/10/17 06/10/17 06/10/17 07:00 15:00 23:00 07:00 15:00 23:00 Intake Total 698 ml 2000 ml 1680 ml 720 ml Output Total 1450 ml 200 ml 975 ml 3140 ml Balance -752 ml 1800 ml 705 ml -2420 ml Intake Oral 480 ml 480 ml 720 ml IV Total 698 ml 20 ml 1200 ml Other 1500 ml Output Urine Total 1450 ml 0 ml 975 ml 3140 ml Estimated Blood Loss 200 ml # Voids 1 2 # Bowel Movements 0 0 0 Result Diagram: 06/10/17 0610 06/10/17 0610 Imaging Last Impressions Aorta w/Runoff CTA 06/09/17 0000 Signed Impressions: Service Date/Time: Friday, June 09, 2017 02:01 - CONCLUSION: Normal three-vessel runoff below the knees with no major vascular injury or extravasation. Jhony Wang MD Ankle X-Ray 06/09/17 0000 Signed Impressions: Service Date/Time: Friday, June 09, 2017 08:47 - CONCLUSION: Intraoperative images. Pepe Dey MD Procedures Irrigation and debridement open right ankle fracture dislocation, skin, subcutaneous tissue, muscle and fascia and bone, Open reduction internal fixation right bimalleolar ankle fracture and dislocation Open reduction internal fixation right syndesmotic injury. Orthopedic central melt specialist Doctor Liza Arce Other Results Laboratory Tests Test 06/09/17 00:30 06/10/17 06:10 Prothrombin Time 12.4 SEC Prothromb Time International Ratio 1.1 RATIO Activated Partial Thromboplast Time 27.8 SEC Ethyl Alcohol Level 285 MG/DL White Blood Count 11.8 TH/MM3 Red Blood Count 3.82 MIL/MM3 Hemoglobin 13.0 GM/DL Hematocrit 37.4 % Mean Corpuscular Volume 98.0 FL Mean Corpuscular Hemoglobin 34.2 PG Mean Corpuscular Hemoglobin Concent 34.9 % Red Cell Distribution Width 13.2 % Platelet Count 142 TH/MM3 Mean Platelet Volume 8.4 FL Neutrophils (%) (Auto) 76.1 % Lymphocytes (%) (Auto) 13.5 % Monocytes (%) (Auto) 10.2 % Eosinophils (%) (Auto) 0.0 % Basophils (%) (Auto) 0.2 % Neutrophils # (Auto) 9.0 TH/MM3 Lymphocytes # (Auto) 1.6 TH/MM3 Monocytes # (Auto) 1.2 TH/MM3 Eosinophils # (Auto) 0.0 TH/MM3 Basophils # (Auto) 0.0 TH/MM3 CBC Comment DIFF FINAL Differential Comment Blood Urea Nitrogen 12 MG/DL Creatinine 0.90 MG/DL Random Glucose 163 MG/DL Total Protein 6.6 GM/DL Albumin 3.1 GM/DL Calcium Level 8.2 MG/DL Alkaline Phosphatase 92 U/L Aspartate Amino Transf (AST/SGOT) 38 U/L Alanine Aminotransferase (ALT/SGPT) 50 U/L Total Bilirubin 0.8 MG/DL Sodium Level 134 MEQ/L Potassium Level 4.2 MEQ/L Chloride Level 98 MEQ/L Carbon Dioxide Level 28.9 MEQ/L Anion Gap 7 MEQ/L Estimat Glomerular Filtration Rate 88 ML/MIN Objective Remarks GENERAL: No acute distress, Obesity. CARDIOVASCULAR: Regular rate and rhythm. RESPIRATORY: clear to auscultation. MUSCULOSKELETAL: RLE orthotics in place. NEUROLOGICAL: Awake, alert and oriented x4. Medications and IVs Current Medications Medications (Trade) Dose Ordered Sig/Coty Route Start Time Stop Time Status Last Admin (Folate) 1 mg DAILY PO 06/09/17 09:00 06/14/17 08:59 06/10/17 08:23 (Vitamin B1) 100 mg DAILY PO 06/10/17 09:00 06/10/17 08:23 (Theragran M Tab) 1 tab DAILY PO 06/09/17 09:00 06/14/17 08:59 06/10/17 08:23 (Romazicon Inj) 0.2 mg Q1M PRN IV PUSH 06/09/17 01:45 (Ativan) 1 mg Q4H PRN PO 06/09/17 01:45 (Ativan Inj) 1 mg Q4H PRN IV PUSH 06/09/17 01:45 (Ativan) 2 mg Q2H PRN PO 06/09/17 01:45 (Ativan Inj) 2 mg Q2H PRN IV PUSH 06/09/17 01:45 (Ativan Inj) 2 mg Q1H PRN IV PUSH 06/09/17 01:45 (Ativan Inj) 2 mg Q15M PRN IV PUSH 06/09/17 01:45 (Haldol Inj) 2 mg Q15M PRN IM 06/09/17 01:45 (NS Flush) 2 ml UNSCH PRN IV FLUSH 06/09/17 01:45 (NS Flush) 2 ml BID IV FLUSH 06/09/17 09:00 (Zofran Inj) 4 mg Q6H PRN IVP 06/09/17 01:45 (Tylenol) 650 mg Q6H PRN PO 06/09/17 01:45 (Morphine Inj) 2 mg Q3H PRN IV PUSH 06/09/17 01:45 06/09/17 23:28 (Roxicodone) 5 mg Q4H PRN PO 06/09/17 01:45 06/10/17 06:08 (Ann-Colace) 1 tab BID PO 06/09/17 09:00 06/10/17 08:23 (Milk Of Magnesia Liq) 30 ml Q12H PRN PO 06/09/17 01:45 (Senokot) 17.2 mg Q12H PRN PO 06/09/17 01:45 (Dulcolax Supp) 10 mg DAILY PRN RECTAL 06/09/17 01:45 (Lactulose Liq) 30 ml DAILY PRN PO 06/09/17 01:45 (Lopressor) 25 mg FIRE TOWER KEEPER PRN PO 06/09/17 03:15 06/12/17 03:14 (Betadine 5% Antisepsis Kit) 1 applic FIRE TOWER KEEPER PRN EACH NARE 06/09/17 03:15 06/12/17 03:14 (Chlorhexidine 2% Cloth) 3 pack FIRE TOWER KEEPER PRN TOPICAL 06/09/17 03:15 06/12/17 03:14 (NovoLIN R INJ) See Protocol Table ... FIRE TOWER KEEPER PRN SQ 06/09/17 03:15 06/12/17 03:14 Lactated Ringer's 1,000 ml @ 80 mls/hr [id number] IV 06/09/17 10:56 06/10/17 02:07 (Lovenox Inj) 40 mg Q24H SQ 06/09/17 23:00 06/09/17 23:20 Pharmacy Profile Note 0 ml @ 0 mls/hr UNSCH OTHER 06/09/17 11:00 06/11/17 10:59 Miscellaneous Information ALL NURSING DEPARTME... UNSCH PRN .XX 06/09/17 10:58 06/10/17 10:57 Miscellaneous Information SPECIFIC LAB TO BE DRAWN:GENTAMI... ONCE ONCE .XX 06/10/17 21:45 06/10/17 21:46 Gentamicin Sulfate/Sodium Chloride 100 ml @ 200 mls/hr Q8H IV 06/09/17 22:00 06/10/17 06:06 A/P Assessment and Plan 1. Open Ankle Fx: Right. S/p fall while intoxicated, Ankle X-ray w/ transverse fracture at the medial malleolus and widening of the medial ankle mortise with mildly comminuted fracture of distal fibula, images reviewed by me. CTA w/ run- off normal. S/p Reduction w/ splint in ER. Status post Irrigation and debridement open right ankle fracture dislocation, skin, subcutaneous tissue, muscle and fascia and bone, Open reduction internal fixation right bimalleolar ankle fracture and dislocation Open reduction internal fixation right syndesmotic injury. Orthopedic central melt specialist Doctor Liza Arce, recommended no Weight bearing on right leg, probable discharge tomorrow. 2. Alcohol Intoxication: Alcohol 285, admits to drinking beer/[employer]. Unclear if pt has h/o Alcohol Abuse or isolated intoxicated. Will start CIWA for possible withdrawal. MVT/Thiamine/Folate replacement, Seizure Precautions. 3. Hypertension controlled. 4. Obesity strongly recommended diet and exercise as outpatient 5. Alcohol abuse/marijuana abuse strongly recommended to stop behavior. DVT prophylaxis as per Attending physician. Discharge Planning once cleared by Orthopedic Surgery. Sha Murillo MD Jun 10, 2017 08:36
[2017-06-10 12:00] VITALS: BP 135/73; PULSE 79; RESP 18; TEMP 98.3; O2SAT 97
[2017-06-10 16:00] VITALS: BP 134/75; PULSE 79; RESP 18; TEMP 99.2; O2SAT 97
[2017-06-10 19:00] VITALS: BP 161/77; PULSE 98; RESP 16; TEMP 100; O2SAT 96
[2017-06-10] MEDS ORDERED: PHARMACY ORDERED LAB ONE (21:45)
[2017-06-10] MEDS: ENOXAPARIN SODIUM 40 MG/0.4 ML SYRINGE SQ SCH (21:49)
[2017-06-10 22:15] VITALS: O2SAT 97
[2017-06-11] VITALS: BP 143/83; PULSE 88; RESP 16; TEMP 98.7; O2SAT 96
[2017-06-11] MEDS: GENTAMICIN/SOD CHL 80 MG/100 ML IV SCH ×2 (04:58→14:30)
[2017-06-11 07:47] VITALS: BP 141/77; PULSE 75; RESP 18; TEMP 98; O2SAT 97
--- NOTE | 2017-06-11 08:19 | PD.ORT.PN ---
Subjective Subjective Remarks Patient doing well this morning. Pain relatively well controlled. Reports posterior slab of his splint is a little too high into his knee and preventing flexion. Otherwise no complaints Objective Vitals Vital Signs Date Time Temp Pulse Resp B/P (MAP) Pulse Ox O2 Delivery O2 Flow Rate FiO2 06/11/17 07:47 98.0 75 18 141/77 (98) 97 06/11/17 00:00 98.7 88 16 143/83 (103) 96 06/10/17 22:15 97 06/10/17 19:00 100.0 98 16 161/77 (105) 96 06/10/17 16:00 99.2 79 18 134/75 (94) 97 06/10/17 12:00 98.3 79 18 135/73 (93) 97 I/O 06/10/17 06/10/17 06/10/17 06/11/17 06/11/17 06/11/17 07:00 15:00 23:00 07:00 15:00 23:00 Intake Total 720 ml 600 ml 480 ml 580 ml Output Total 3140 ml 850 ml 600 ml Balance -2420 ml 600 ml -370 ml -20 ml Intake Oral 720 ml 600 ml 480 ml 480 ml IV Total 100 ml Output Urine Total 3140 ml 850 ml 600 ml # Voids 3 # Bowel Movements 0 0 0 0 Result Diagram: 06/10/17 0610 06/10/17 0610 Objective Remarks Awake, alert, no acute distress Right lower extremity: Splint in place without any significant drainage. Patient does move toes positive EHL and FHL. Sensation intact over distal toes. Brisk cap refill Assessment & Plan Assessment and Plan 51-year-old, now postop day 2 status post I&D and ORIF of right open ankle fracture 1. Nonweightbearing right lower extremity in splint. Posterior aspect of splint is a little too proximal and preventing knee flexion. We will ask [facility] to replace with new splint. 2. PT for mobilization 3. Lovenox while in house for DVT prophylaxis 4. Patient says to complete 48 hours of antibiotics postop this morning. Okay to discontinue. 5. I have ordered postoperative x-rays to allow patient have baseline should he follow up back in [place] with another physician. 6. Okay for discharge from orthopedic standpoint today Liza Arce MD Jun 11, 2017 08:19
--- NOTE | 2017-06-11 08:24 | HHI.PR ---
Subjective Remarks History from admitting physician Doctor Cathy Lima This is a 51-year-old male with a PMH of HTN, Hyperlipidemia and Depression who was brought to the ER by EMS w/ right open ankle fx. Pt currently intoxicated. States he was stepping off a curb and broke his ankle. No other injuries reported. On arrival, BP 119/78, HR 95, O2 sat 97% on RA, Afebrile. CBC unremarkable. Most recently unremarkable except for GFR 76. INR 1.1. Alcohol 285. Ankle X-ray with transverse fracture at the medial malleolus with widening of the medial ankle mortise, mildly comminuted fracture of distal fibula. CTA w/ Run-off, normal three vessel runoff below the knees. S/p reduction in ER. Dr. Arce consulted, plan is for surgical intervention in am. 06/09: This is a pleasant 51 y/o male was seen in his bedroom in the presence of Nurse, he is looking for something he lost and helped by Nurse not able to talk to me too much but states he is fine after procedure, he had Irrigation and debridement open right ankle fracture dislocation, skin, subcutaneous tissue, muscle and fascia and bone, Open reduction internal fixation right bimalleolar ankle fracture and dislocation Open reduction internal fixation right syndesmotic injury. Orthopedic front end alignment specialist Doctor Liza Arce He was admitted today please read full H and P dictated by admitting physician. as we know he has Hypertension, Hyperlipidemia, Depression alcohol abuse and marijuana. has Obesity. 06/10: Seen in his bedroom no complaint, evaluated laboratory for today, stable labs, no nausea, vomit or diarrhea, for probable discharge tomorrow once cleared by Orthopedic Surgery 1128: Stable in his bedroom, no nausea vomit or diarrhea, okay to discharge from Orthopedic Surgery, okay from Medicine standpoint will need to follow with PCP for probable Diabetes Mellitus he has some increased blood sugar levels while hospitalized. will need Hemoglobin A1C. Objective Vital Signs Date Time Temp Pulse Resp B/P (MAP) Pulse Ox O2 Delivery O2 Flow Rate FiO2 06/11/17 07:47 98.0 75 18 141/77 (98) 97 06/11/17 00:00 98.7 88 16 143/83 (103) 96 06/10/17 22:15 97 06/10/17 19:00 100.0 98 16 161/77 (105) 96 06/10/17 16:00 99.2 79 18 134/75 (94) 97 06/10/17 12:00 98.3 79 18 135/73 (93) 97 I/O 06/10/17 06/10/17 06/10/17 06/11/17 06/11/17 06/11/17 07:00 15:00 23:00 07:00 15:00 23:00 Intake Total 720 ml 600 ml 480 ml 580 ml Output Total 3140 ml 850 ml 600 ml Balance -2420 ml 600 ml -370 ml -20 ml Intake Oral 720 ml 600 ml 480 ml 480 ml IV Total 100 ml Output Urine Total 3140 ml 850 ml 600 ml # Voids 3 # Bowel Movements 0 0 0 0 Result Diagram: 06/10/17 0610 06/10/17 0610 Imaging Last Impressions Aorta w/Runoff CTA 06/09/17 0000 Signed Impressions: Service Date/Time: Friday, June 09, 2017 02:01 - CONCLUSION: Normal three-vessel runoff below the knees with no major vascular injury or extravasation. Jhony Wang MD Ankle X-Ray 06/09/17 0000 Signed Impressions: Service Date/Time: Friday, June 09, 2017 08:47 - CONCLUSION: Intraoperative images. Pepe Dey MD Procedures Irrigation and debridement open right ankle fracture dislocation, skin, subcutaneous tissue, muscle and fascia and bone, Open reduction internal fixation right bimalleolar ankle fracture and dislocation Open reduction internal fixation right syndesmotic injury. Orthopedic front end alignment specialist Doctor Liza Arce Other Results Laboratory Tests Test 06/09/17 00:30 06/10/17 06:10 06/10/17 21:48 Prothrombin Time 12.4 SEC Prothromb Time International Ratio 1.1 RATIO Activated Partial Thromboplast Time 27.8 SEC Ethyl Alcohol Level 285 MG/DL White Blood Count 11.8 TH/MM3 Red Blood Count 3.82 MIL/MM3 Hemoglobin 13.0 GM/DL Hematocrit 37.4 % Mean Corpuscular Volume 98.0 FL Mean Corpuscular Hemoglobin 34.2 PG Mean Corpuscular Hemoglobin Concent 34.9 % Red Cell Distribution Width 13.2 % Platelet Count 142 TH/MM3 Mean Platelet Volume 8.4 FL Neutrophils (%) (Auto) 76.1 % Lymphocytes (%) (Auto) 13.5 % Monocytes (%) (Auto) 10.2 % Eosinophils (%) (Auto) 0.0 % Basophils (%) (Auto) 0.2 % Neutrophils # (Auto) 9.0 TH/MM3 Lymphocytes # (Auto) 1.6 TH/MM3 Monocytes # (Auto) 1.2 TH/MM3 Eosinophils # (Auto) 0.0 TH/MM3 Basophils # (Auto) 0.0 TH/MM3 CBC Comment DIFF FINAL Differential Comment Blood Urea Nitrogen 12 MG/DL Creatinine 0.90 MG/DL Random Glucose 163 MG/DL Total Protein 6.6 GM/DL Albumin 3.1 GM/DL Calcium Level 8.2 MG/DL Alkaline Phosphatase 92 U/L Aspartate Amino Transf (AST/SGOT) 38 U/L Alanine Aminotransferase (ALT/SGPT) 50 U/L Total Bilirubin 0.8 MG/DL Sodium Level 134 MEQ/L Potassium Level 4.2 MEQ/L Chloride Level 98 MEQ/L Carbon Dioxide Level 28.9 MEQ/L Anion Gap 7 MEQ/L Estimat Glomerular Filtration Rate 88 ML/MIN Gentamicin Level Trough 0.5 MCG/ML Objective Remarks GENERAL: No acute distress, Obesity. CARDIOVASCULAR: Regular rate and rhythm. RESPIRATORY: clear to auscultation. MUSCULOSKELETAL: RLE orthotics in place. NEUROLOGICAL: Awake, alert and oriented x4. Medications and IVs Current Medications Medications (Trade) Dose Ordered Sig/Coty Route Start Time Stop Time Status Last Admin (Folate) 1 mg DAILY PO 06/09/17 09:00 06/14/17 08:59 06/10/17 08:23 (Vitamin B1) 100 mg DAILY PO 06/10/17 09:00 06/10/17 08:23 (Theragran M Tab) 1 tab DAILY PO 06/09/17 09:00 06/14/17 08:59 06/10/17 08:23 (Romazicon Inj) 0.2 mg Q1M PRN IV PUSH 06/09/17 01:45 (Ativan) 1 mg Q4H PRN PO 06/09/17 01:45 (Ativan Inj) 1 mg Q4H PRN IV PUSH 06/09/17 01:45 (Ativan) 2 mg Q2H PRN PO 06/09/17 01:45 (Ativan Inj) 2 mg Q2H PRN IV PUSH 06/09/17 01:45 (Ativan Inj) 2 mg Q1H PRN IV PUSH 06/09/17 01:45 (Ativan Inj) 2 mg Q15M PRN IV PUSH 06/09/17 01:45 (Haldol Inj) 2 mg Q15M PRN IM 06/09/17 01:45 (NS Flush) 2 ml UNSCH PRN IV FLUSH 06/09/17 01:45 (NS Flush) 2 ml BID IV FLUSH 06/09/17 09:00 06/10/17 19:48 (Zofran Inj) 4 mg Q6H PRN IVP 06/09/17 01:45 (Tylenol) 650 mg Q6H PRN PO 06/09/17 01:45 (Morphine Inj) 2 mg Q3H PRN IV PUSH 06/09/17 01:45 06/09/17 23:28 (Roxicodone) 5 mg Q4H PRN PO 06/09/17 01:45 06/11/17 04:58 (Ann-Colace) 1 tab BID PO 06/09/17 09:00 06/10/17 19:45 (Milk Of Magnesia Liq) 30 ml Q12H PRN PO 06/09/17 01:45 (Senokot) 17.2 mg Q12H PRN PO 06/09/17 01:45 (Dulcolax Supp) 10 mg DAILY PRN RECTAL 06/09/17 01:45 (Lactulose Liq) 30 ml DAILY PRN PO 06/09/17 01:45 (Lopressor) 25 mg WEB CONTENT DEVELOPER PRN PO 06/09/17 03:15 06/12/17 03:14 (Betadine 5% Antisepsis Kit) 1 applic WEB CONTENT DEVELOPER PRN EACH NARE 06/09/17 03:15 06/12/17 03:14 (Chlorhexidine 2% Cloth) 3 pack WEB CONTENT DEVELOPER PRN TOPICAL 06/09/17 03:15 06/12/17 03:14 (NovoLIN R INJ) See Protocol Table ... WEB CONTENT DEVELOPER PRN SQ 06/09/17 03:15 06/12/17 03:14 Lactated Ringer's 1,000 ml @ 80 mls/hr [id number] IV 06/09/17 10:56 06/10/17 10:51 (Lovenox Inj) 40 mg Q24H SQ 06/09/17 23:00 06/10/17 21:49 Pharmacy Profile Note 0 ml @ 0 mls/hr UNSCH OTHER 06/09/17 11:00 06/11/17 10:59 Gentamicin Sulfate/Sodium Chloride 100 ml @ 200 mls/hr Q8H IV 06/09/17 22:00 06/11/17 04:58 A/P Assessment and Plan 1. Open Ankle Fx: Right. S/p fall while intoxicated, Ankle X-ray w/ transverse fracture at the medial malleolus and widening of the medial ankle mortise with mildly comminuted fracture of distal fibula, images reviewed by me. CTA w/ run- off normal. S/p Reduction w/ splint in ER. Status post Irrigation and debridement open right ankle fracture dislocation, skin, subcutaneous tissue, muscle and fascia and bone, Open reduction internal fixation right bimalleolar ankle fracture and dislocation Open reduction internal fixation right syndesmotic injury. Orthopedic front end alignment specialist Doctor Liza Arce, recommended no Weight bearing on right leg, recommended for discharge today after he finished antibiotics 48 hours for Open Fracture protocol. 2. Alcohol Intoxication: Alcohol 285, admits to drinking beer/[employer]. Unclear if pt has h/o Alcohol Abuse or isolated intoxicated. Will start CIWA for possible withdrawal. MVT/Thiamine/Folate replacement, Seizure Precautions. 3. Hypertension controlled. 4. Obesity strongly recommended diet and exercise as outpatient 5. Alcohol abuse/marijuana abuse strongly recommended to stop behavior. DVT prophylaxis as per Attending physician. Discharge Planning Cleared for discharge by Orthopedic surgery. and follow by his physician he is [place]. Sha Murillo MD Jun 11, 2017 08:24
[2017-06-11] MEDS: FOLIC ACID 1 MG TAB PO SCH (08:47)
[2017-06-11] MEDS: MULTIVITAMINS/MINERALS THERAPEUTIC TAB PO SCH (08:48)
[2017-06-11] MEDS: THIAMINE HCL 100 MG TAB PO SCH (08:48)
[2017-06-11] MEDS: SODIUM CHLORIDE 0.9% FLUSH 10 ML FLUSH IV FLUSH SCH (08:48)
[2017-06-11] MEDS: DOCUSATE SODIUM 50 MG/SENNA 8.6 MG TAB PO SCH (08:48)
[2017-06-11 09:08] VITALS: O2SAT 97
[2017-06-11] MEDS: LACTATED RINGER'S 1000 ML INJ 1,000 ML IV SCH (09:29)
[2017-06-11 11:53] VITALS: BP 133/72; PULSE 77; RESP 18; TEMP 98.1; O2SAT 96
--- NOTE | 2017-06-11 14:52 | RADRPT ---
EXAM DATE/TIME: 06/11/2017 13:09 [facility] COMPARISON: ANKLE LEFT LIMITED (AP&LAT), June 09, 2017, 0:45. ANKLE RIGHT LIMITED (AP&LAT), June 09 7, 8:47. INDICATIONS : Post op right ankle. MEDICAL HISTORY : Hypertension. SURGICAL HISTORY : Right ORIF ankle. ENCOUNTER: Subsequent ACUITY: 2 days PAIN SCORE: 0/10 LOCATION: Right ankle FINDINGS: Two view examination was performed of the right ankle. Sideplate and osseous screws secure the distal fibular diaphyseal fracture with 2 screws traversing the medial malleolus. However, there may be a p ersistent fracture fragment off the medial malleolus juxtaposed between the distal tibia and talus. CONCLUSION: 1. Open reduction and internal fixation of medial malleolar and distal fibular diaphyseal fractures a s above. 2. There may be a persistent free fragment projecting between the medial malleolus and adjacent talus . A mortise view may be useful for further evaluation. Fredo May MD on June 11, 2017 at 14:45 Board Certified Radiologist. This report was verified electronically.
--- NOTE | 2017-06-11 15:17 | HHI.DS ---
Discharge Summary Admission Date Jun 09, 2017 at 01:42 Discharge Date: Jun 11, 2017 Admitting Diagnosis open fracture/dislocation (1) Open right ankle fracture ICD Code: S82.891B - Other fracture of right lower leg, initial encounter for open fracture type I or II Diagnosis: Principal (2) Alcohol intoxication ICD Code: F10.929 - Alcohol use, unspecified with intoxication, unspecified Diagnosis: Principal (3) Dehydration ICD Code: E86.0 - Dehydration Diagnosis: Principal Procedures Irrigation and debridement open right ankle fracture dislocation, skin, subcutaneous tissue, muscle and fascia and bone, Open reduction internal fixation right bimalleolar ankle fracture and dislocation Open reduction internal fixation right syndesmotic injury. Orthopedic adolescent specialist Doctor Liza Arce Brief History - From Admission This is a 51-year-old male with a PMH of HTN, Hyperlipidemia and Depression who was brought to the ER by EMS w/ right open ankle fx. Pt currently intoxicated. States he was stepping off a curb and broke his ankle. No other injuries reported. On arrival, BP 119/78, HR 95, O2 sat 97% on RA, Afebrile. CBC unremarkable. Most recently unremarkable except for GFR 76. INR 1.1. Alcohol 285. Ankle X-ray with transverse fracture at the medial malleolus with widening of the medial ankle mortise, mildly comminuted fracture of distal fibula. CTA w/ Run-off, normal three vessel runoff below the knees. S/p reduction in ER. Dr. Arce consulted, plan is for surgical intervention in am. CBC/BMP: 06/10/17 0610 06/10/17 0610 Significant Findings Laboratory Tests Test 06/09/17 00:30 06/10/17 06:10 06/10/17 21:48 Red Blood Count 4.23 MIL/MM3 (4.50-5.90) 3.82 MIL/MM3 (4.50-5.90) Monocytes (%) (Auto) 8.2 % (0.0-8.0) 10.2 % (0.0-8.0) Prothrombin Time 12.4 SEC (9.8-11.6) Random Glucose 138 MG/DL (74-106) 163 MG/DL (74-106) Calcium Level 8.2 MG/DL (8.5-10.1) 8.2 MG/DL (8.5-10.1) Aspartate Amino Transf (AST/SGOT) 55 U/L (15-37) 38 U/L (15-37) Sodium Level 132 MEQ/L (136-145) 134 MEQ/L (136-145) Chloride Level 93 MEQ/L (98-107) Estimat Glomerular Filtration Rate 76 ML/MIN (>89) 88 ML/MIN (>89) Ethyl Alcohol Level 285 MG/DL (0-5) White Blood Count 11.8 TH/MM3 (4.0-11.0) Hematocrit 37.4 % (39.0-51.0) Mean Corpuscular Hemoglobin 34.2 PG (27.0-34.0) Platelet Count 142 TH/MM3 (150-450) Neutrophils (%) (Auto) 76.1 % (16.0-70.0) Neutrophils # (Auto) 9.0 TH/MM3 (1.8-7.7) Monocytes # (Auto) 1.2 TH/MM3 (0-0.9) Albumin 3.1 GM/DL (3.4-5.0) Imaging Last Impressions Ankle X-Ray 06/11/17 0000 Signed Impressions: Service Date/Time: Sunday, June 11, 2017 13:09 - CONCLUSION: 1. Open reduction and internal fixation of medial malleolar and distal fibular diaphyseal fractures as above. 2. There may be a persistent free fragment projecting between the medial malleolus and adjacent talus. A mortise view may be useful for further evaluation. Fredo May MD Aorta w/Runoff CTA 06/09/17 0000 Signed Impressions: Service Date/Time: Friday, June 09, 2017 02:01 - CONCLUSION: Normal three-vessel runoff below the knees with no major vascular injury or extravasation. Jhony Wang MD PE at Discharge GENERAL: No acute distress, Obesity. CARDIOVASCULAR: Regular rate and rhythm. RESPIRATORY: clear to auscultation. MUSCULOSKELETAL: RLE orthotics in place. NEUROLOGICAL: Awake, alert and oriented x4. Hospital Course History from admitting physician Doctor Cathy Lima This is a 51-year-old male with a PMH of HTN, Hyperlipidemia and Depression who was brought to the ER by EMS w/ right open ankle fx. Pt currently intoxicated. States he was stepping off a curb and broke his ankle. No other injuries reported. On arrival, BP 119/78, HR 95, O2 sat 97% on RA, Afebrile. CBC unremarkable. Most recently unremarkable except for GFR 76. INR 1.1. Alcohol 285. Ankle X-ray with transverse fracture at the medial malleolus with widening of the medial ankle mortise, mildly comminuted fracture of distal fibula. CTA w/ Run-off, normal three vessel runoff below the knees. S/p reduction in ER. Dr. Arce consulted, plan is for surgical intervention in am. 06/09: This is a pleasant 51 y/o male was seen in his bedroom in the presence of Nurse, he is looking for something he lost and helped by Nurse not able to talk to me too much but states he is fine after procedure, he had Irrigation and debridement open right ankle fracture dislocation, skin, subcutaneous tissue, muscle and fascia and bone, Open reduction internal fixation right bimalleolar ankle fracture and dislocation Open reduction internal fixation right syndesmotic injury. Orthopedic adolescent specialist Doctor Liza Arce He was admitted today please read full H and P dictated by admitting physician. as we know he has Hypertension, Hyperlipidemia, Depression alcohol abuse and marijuana. has Obesity. 06/10: Seen in his bedroom no complaint, evaluated laboratory for today, stable labs, for probable discharge tomorrow once cleared by Orthopedic Surgery 06.11: Stable in his bedroom okay to discharge from Orthopedic surgery standpoint, no nausea, vomit or diarrhea. Assessment and Plan 1. Open Ankle Fx: Right. S/p fall while intoxicated, Ankle X-ray w/ transverse fracture at the medial malleolus and widening of the medial ankle mortise with mildly comminuted fracture of distal fibula, images reviewed by me. CTA w/ run- off normal. S/p Reduction w/ splint in ER. Status post Irrigation and debridement open right ankle fracture dislocation, skin, subcutaneous tissue, muscle and fascia and bone, Open reduction internal fixation right bimalleolar ankle fracture and dislocation Open reduction internal fixation right syndesmotic injury. Orthopedic adolescent specialist Doctor Liza Arce, recommended no Weight bearing on right leg, recommended Non weight bearing on the right lower extremity in splint, Posterior splint is a little too proximal and preventing knee flexion Orthotec replace with new splint, PT fo mobilization, Lovenox while inhouse for DVT prophylaxis, Patient complete 48 hours of antibiotics post op as per Open fracture protocol, he will come back to [place] with another physician. 2. Alcohol Intoxication: Alcohol 285, admits to drinking beer/[employer]. Unclear if pt has h/o Alcohol Abuse or isolated intoxicated. Will start CIWA for possible withdrawal. MVT/Thiamine/Folate replacement, Seizure Precautions. 3. Hypertension controlled. 4. Obesity strongly recommended diet and exercise as outpatient 5. Alcohol abuse/marijuana abuse strongly recommended to stop behavior. DVT prophylaxis as per Attending physician. Discharge Planning Okay to discharge from Orthopedic Surgery standpoint. Pt Condition on Discharge: Good Discharge Disposition: Discharge Home Discharge Time: <= 30 minutes Discharge Instructions DIET: Follow Instructions for: Heart Healthy Diet, Diabetic Diet Additional Diet Instructions: Suspected Diabetes Mellitus will need to complete tests like Hemoglobin A1C Activities you can perform: Non Weight Bearing Other Activity Instructions: No Weight bearing on Right leg Sha Murillo MD Jun 11, 2017 15:17
== END 2017-06-11 17:04 | disposition home or self-care (01) | DRG 494 ==
LOC: NEPC 00:12 → NEDA 01:42 → N06A 02:52
PROVIDERS: ADMIT Internal Medicine; ATTEND Internal Medicine
PROC: 0QSJ04Z Reposition Right Fibula with Internal Fixation Device, Open Approach (ICD-10-PCS; 2017-06-09)
PROC: 0SSF04Z Reposition Right Ankle Joint with Internal Fixation Device, Open Approach (ICD-10-PCS; 2017-06-09)
PROC: 0QSG04Z Reposition Right Tibia with Internal Fixation Device, Open Approach (ICD-10-PCS; principal; 2017-06-09 08:08)
DX: S82.841B Displaced bimalleolar fracture of right lower leg, initial encounter for open fracture type I or II (principal); I10 Essential (primary) hypertension; S93.04XA Dislocation of right ankle joint, initial encounter; R73.9 Hyperglycemia, unspecified; E86.0 Dehydration; E78.5 Hyperlipidemia, unspecified; N40.0 Benign prostatic hyperplasia without lower urinary tract symptoms; E66.9 Obesity, unspecified; F10.129 Alcohol abuse with intoxication, unspecified; F12.10 Cannabis abuse, uncomplicated; F32.9 Major depressive disorder, single episode, unspecified; W10.1XXA Fall (on)(from) sidewalk curb, initial encounter; Y90.8 Blood alcohol level of 240 mg/100 ml or more; Z68.38 Body mass index [BMI] 38.0-38.9, adult
CPT/HCPCS: 27840; 73600; 75635; 76000; 80053; 80170; 80307; 85025; 85610; 85730; 86850; 86900; 86901; 90471; 90714; 93005; 94150; 96365; C1713; J0131; J0330; J0690; J1100; J1580; J1650; J2250; J2270; J2405; J2710; J3010; J3411; J7030; J7120; Q9967